=== PATIENT | female | born 1960 | race Caucasian/White ===

== ENCOUNTER 2016-08-17 15:15 | Outpatient (CLI) | payer BC | END 2016-08-17 23:59 | DX: R30.0 Dysuria (principal) ==

== ENCOUNTER 2017-01-16 11:24 | Outpatient (CLI) | payer BC ==
--- NOTE | 2017-01-17 16:44 | Mammography Report ---
DIGITAL SCREENING MAMMOGRAM: 01/16/2017 CLINICAL INDICATION: A 56-year-old with history of bilateral reduction for screening. COMPARISON: 04/2014, 10/2011, 07/2010, 12/2007, 11/2006. TECHNIQUE: Routine CC and MLO projections were obtained of the breasts. FINDINGS: The breasts again demonstrate scattered fibroglandular densities bilaterally. Punctate, t ypically benign calcifications are present. Post-reduction changes are stable. No suspicious masses , clustered microcalcifications, or regions of architectural distortion are identified. IMPRESSION: BENIGN FINDINGS. RECOMMENDATION: Routine annual screening unless otherwise clinically indicated. BIRADS CATEGORY 2 - BENIGN FINDINGS. STANDARD QUALIFYING STATEMENTS 1. This examination was reviewed with the aid of Computer-Aided Detection (CAD). 2. A negative or benign imaging report should not delay biopsy if clinically suspicious findings are present. Consider surgical consultation if warranted. More than 5% of cancers are not identified by i maging. 3. Dense breasts may obscure an underlying neoplasm. JOB #: [id number] EXT JOB #:[id number]
== END 2017-01-16 11:25 | disposition home or self-care (01) ==
LOC: DI.N 11:24
PROVIDERS: ATTEND Family Medicine
DX: Z12.31 Encounter for screening mammogram for malignant neoplasm of breast (principal)
CPT/HCPCS: 77067

== ENCOUNTER 2017-07-30 08:00 | Outpatient (CLI) | payer BC ==
[2017-07-30 19:22] LABS: ALBUMIN 4.6 g/dL (3.2-5.5); ALBUMIN/GLOBULIN RATIO 1.4 (1.0-2.2); ALKALINE PHOSPHATASE 60 IU/L (42-121); ALT ALANINE AMINOTRANSFERASE 24 IU/L (10-60); AST ASPARTATE AMINOTRANSFERASE 24 IU/L (10-42); BILIRUBIN,TOTAL 0.3 mg/dL (0.2-1.0); BUN - BLOOD UREA NITROGEN 22 mg/dL (6-20); CALCIUM 9.5 mg/dL (8.5-10.3); CARBON DIOXIDE - CO2 24 mmol/L (21-32); CHLORIDE 103 mmol/L (101-111); CREATININE 0.6 mg/dL (0.4-1.0); GFR - MDRD 104 (>89); GLUCOSE 110 mg/dL (70-100); SODIUM 136 mmol/L (135-145); TOTAL PROTEIN 7.9 g/dL (6.7-8.2)
[2017-07-30 19:23] LABS: BASOPHILS # (AUTO) 0.1 10^3/uL (0.0-0.1); BASOPHILS % (AUTO) 0.8 %; EOSINOPHILS # (AUTO) 0.1 10^3/uL (0.0-0.7); EOSINOPHILS % (AUTO) 1.8 %; LYMPHOCYTES # (AUTO) 2.8 10^3/uL (1.5-3.5); LYMPHOCYTES % (AUTO) 38.2 %; MEAN CORPUSCULAR HGB CONC 33.1 g/dL (32.0-36.0); MEAN CORPUSCULAR VOLUME 90.6 fL (81.0-99.0); MEAN PLATELET VOLUME 8.1 fL (7.9-10.8); MONOCYTES # (AUTO) 0.4 10^3/uL (0.0-1.0); MONOCYTES % (AUTO) 4.8 %; NEUTROPHILS % (AUTO) 54.4 %; PLT - PLATELET COUNT 374 10^3/uL (130-450); RED BLOOD COUNT 4.99 10^6/uL (4.20-5.40); RED CELL DISTRIBUTION WIDTH 13.3 % (12.0-15.0); WHITE BLOOD COUNT 7.4 x10^3/uL (4.8-10.8)
== END 2017-07-30 08:01 | disposition home or self-care (01) ==
LOC: LAB.WCP 08:00
PROVIDERS: ATTEND Physician Assistant Medical
DX: R55 Syncope and collapse (principal)
CPT/HCPCS: 36415; 80053; 84443; 85025

== ENCOUNTER 2018-01-30 10:26 | Outpatient (CLI) | payer BC ==
--- NOTE | 2018-01-31 16:57 | Mammography Report ---
Procedure Date: 01/30/2018 Accession Number: [id number] / [id number] Procedure: MGN - Screening Mammo Dig Bilat CPT Code: FULL RESULT: EXAM: Screening Mammo Dig Bilat DATE: 01/30/2018 10:55 AM CLINICAL HISTORY: 57-year-old with history of bilateral reduction for screening TECHNIQUE: Bilateral CC and MLO views were obtained. COMPARISON: 01/16/2017, 05/15/2014, 11/03/2011, 07/25/2010 FINDINGS: The breasts demonstrate scattered fibroglandular densities bilaterally. Postreduction changes are stable. Coarse and punctate, typically benign calcifications are present. Intramammary lymph node is stable. No suspicious masses, clustered microcalcifications, or regions of architectural distortion are identified. IMPRESSION: Benign findings RECOMMENDATION: Routine annual screening unless otherwise clinically indicated. BIRADS CATEGORY 2: Benign findings STANDARD QUALIFYING STATEMENTS: 1. This examination was reviewed with the aid of Computer-Aided Detection (CAD). 2. A negative or benign imaging report should not delay biopsy if clinically suspicious findings are present. Consider surgical consultation if warrented. More than 5% of cancers are not identified by imaging. 3. Dense breasts may obscure an underlying neoplasm.
== END 2018-01-30 10:27 | disposition home or self-care (01) ==
LOC: DI.N 10:26
PROVIDERS: ATTEND Physician Assistant Medical
DX: Z12.31 Encounter for screening mammogram for malignant neoplasm of breast (principal)
CPT/HCPCS: 77067

== ENCOUNTER 2018-10-06 13:44 | Outpatient (CLI) | payer BC | END 2018-10-06 13:45 | disposition short-term general hospital (02) | LOC: EMS 13:44 | PROVIDERS: ATTEND Surgery | DX: S09.90XA Unspecified injury of head, initial encounter (principal); R41.0 Disorientation, unspecified; R51 Headache; M54.5 Low back pain; M25.521 Pain in right elbow; R10.812 Left upper quadrant abdominal tenderness; R11.0 Nausea; V28.4XXA Motorcycle driver injured in noncollision transport accident in traffic accident, initial encounter; Y92.413 State road as the place of occurrence of the external cause | CPT/HCPCS: A0425; A0429 ==

== ENCOUNTER 2018-11-04 09:47 | Outpatient (CLI) | payer BC ==
--- NOTE | 2018-11-04 13:13 | XRAY Report ---
Reason: MUSCLE SPASM,BACK Procedure Date: 11/04/2018 Accession Number: [id number] / [id number] Procedure: WCP - Thoracic Spine 2 View CPT Code: FULL RESULT: EXAM: THORACIC SPINE RADIOGRAPHY EXAM DATE: 11/04/2018 10:04 AM. CLINICAL HISTORY: MUSCLE SPASM,BACK. COMPARISON: None. TECHNIQUE: 2 views. FINDINGS: Alignment: Mild levoscoliosis of the lower thoracic spine. No spondylolisthesis. Bones: No acute fracture or bony lesion. Degenerative spurring. Disks: Mild to moderate multilevel disk space narrowing. Soft Tissues: No paravertebral stripe widening. Included portions of the lungs, ribs and heart are unremarkable. Status post cholecystectomy. IMPRESSION: 1. Mild to moderate degenerative changes of the thoracic spine. [facility]
== END 2018-11-04 09:48 | disposition home or self-care (01) ==
LOC: DI.WCP 09:47
PROVIDERS: ATTEND Physician Assistant Medical
DX: M62.830 Muscle spasm of back (principal); M47.814 Spondylosis without myelopathy or radiculopathy, thoracic region
CPT/HCPCS: 72070